=== PATIENT | female | born 1945 | race Caucasian/White ===

== ENCOUNTER 2020-06-13 14:47 | Outpatient (REF) | payer MEDICARE, SELFPAY ==
--- NOTE | 2020-06-13 15:21 | MM_ITS ---
EXAMINATION: BONE DENSITOMETRY CLINICAL INDICATION: Osteoporosis. COMPARISON: Previous BD dated 04/03/2018 and baseline BD dated 07/12/2005. TECHNIQUE: Using a [employer] DXA System (software version: 13.1) manufactured by [employer], dual-energy x-ray absorptiometry was performed of the lumbar spine and left hip. The images are of good technical quality. Summary results are attached. FINDINGS: AP SPINE L1-L4: Current: BMD 0.839 g/cm2, Z-score -0.7, T-score -2.8, osteoporosis, 8.0% decrease from previous, 5.3% decrease from baseline (<5% change is not significant). Prior: BMD 0.912 g/cm2. Baseline: BMD 0.886 g/cm2. LEFT FEMUR, NECK: Current: BMD 0.758 g/cm2, Z-score 0.2, T-score -2.0, osteopenia. Prior: BMD 0.730 g/cm2. Baseline: BMD 0.773 g/cm2. LEFT FEMUR, TOTAL: Current: BMD 0.785 g/cm2, Z-score 0.3, T-score -1.8, osteopenia, 0.5% decrease from previous, 0.6% decrease from baseline (<5% change is not significant). Prior: BMD 0.789 g/cm2. Baseline: BMD 0.790 g/cm2. IDENTIFIED RISK FACTORS: Osteoporosis, height loss, secondary osteoporosis, history of fracture (adult), menopause. HISTORY OF FRACTURE: Spine. Ribs. No insufficiency fracture reported. MEDICATIONS: Vitamin D, bisphosphonate. IMPRESSION: 1. DIAGNOSIS: Osteoporosis based on the lowest T-score value of -2.8 in the lumbar spine applying World Health Organization criteria. 2. 10-YEAR FRACTURE RISK PREDICTION, FRAX: Major osteoporotic fracture (clinical spine, forearm, hip or shoulder) 21.7%. Hip fracture 5.7%. 3. Treatment Recommendations: NOF guidelines recommend consideration for treatment in postmenopausal women and men age 50 and older presenting with the following: -A hip or vertebral (clinical or morphometric) fracture. -T-score less than or equal to -2.5 at the femoral neck or spine after appropriate evaluation to exclude secondary causes. -Low bone mass at the hip or spine and a 10-year fracture probability by FRAX of greater than or equal to 3% for hip fracture or greater than or equal to 20% for major osteoporotic fracture based on the [place] adapted WHO algorithm. 4. Other Recommendations: All treatment decisions require clinical judgment and consideration of individual patient factors, including patient preferences, comorbidities, previous drug use, risk factors not captured in the FRAX model (e.g. frailty, falls, vitamin D deficiency, increased bone turnover, interval significant decline in bone density) and possible under or overestimation of fracture risk by FRAX. Additional medical evaluation for secondary cause of low bone mineral density may be appropriate. FUTURE SCAN RECOMMENDATION: People with diagnosed cases of osteoporosis or at high risk for fracture should have regular bone mineral density tests. For patients eligible for Medicare, routine testing is allowed once every 2 years. The testing frequency can be increased to one year for patients who have rapidly progressing disease, those who are receiving or discontinuing medical therapy to restore bone mass, or have additional risk factors.
== END 2020-06-13 14:48 | disposition home or self-care (01) ==
LOC: HO.MAMMO 14:47
PROVIDERS: Visit Provider Internal Medicine Endocrinology, Diabetes & Metabolism
DX: M81.0 Age-related osteoporosis without current pathological fracture (principal); Z78.0 Asymptomatic menopausal state; Z79.899 Other long term (current) drug therapy
CPT/HCPCS: 77080

== ENCOUNTER 2020-06-15 10:46 | Outpatient (REF) | payer MEDICARE, SELFPAY ==
--- NOTE | 2020-06-15 | US_ITS ---
EXAMINATION: US ABDOMEN COMPLETE CLINICAL INFORMATION: Hepatic cyst. COMPARISON: Ultrasound abdomen complete 07/19/2019. TECHNIQUE: Real-time imaging of the abdominal viscera. FINDINGS: PANCREAS: No abnormal mass or peripancreatic inflammatory change. ABDOMINAL AORTA: Calcified plaque present without significant stenosis appreciated. No abdominal aortic aneurysm. INFERIOR VENA CAVA: Visualized portions are normal. LIVER: There is again noted to be a the left lobe complex either septated cyst or multiple adjacent cysts similar in appearance to previous study measuring approximately 12.3 x 8.4 x 14.7 cm in size. Within the right lobe there are 2 cysts present one measuring 2.7 x 2.5 x 3.1 cm in size and appearing simple, and the other measuring 2.6 x 1.9 x 2.4 cm in size containing septations versus a few adjacent cysts.. Parenchymal echogenicity is normal. There is no intrahepatic biliary duct dilatation seen. GALLBLADDER: Surgically absent. COMMON BILE DUCT: Normal in caliber measuring 0.5 cm in diameter. RIGHT KIDNEY: Normal. No hydronephrosis. No renal calculi or focal parenchymal lesions. The kidney measures 9.7 cm in maximum dimension. LEFT KIDNEY: Within the lower pole there appears to be a 3 x 2 mm nonobstructing calculus. There are multiple other echogenic foci which may represent small nonobstructing calculi or vascular interfaces. No hydronephrosis or focal parenchymal lesions. The kidney measures 11.1 cm in maximum dimension. SPLEEN: Normal. The spleen measures 10.8 cm in maximum dimension. FREE FLUID: None. IMPRESSION: Right and left lobe hepatic cysts 2 of which appear to be complex but without suspicious solid components. Left renal calculi without evidence of hydronephrosis.
--- NOTE | 2020-06-15 11:29 | CA_ITS ---
Transthoracic Echocardiogram Patient (Last, First, Middle): Shantel Prajapati, Gender: Female Date of : 1945 Age: 75 Procedure Date: 06/15/2020 Procedure Type: Transthoracic Echocardiogram Location: OP Height: 144.78 cm Weight: 53.52 kg BSA: 1.44 m2 Heart Rate: bpm BP: 130 / 80 mmHg Jacquard Card Cutter: Referring MD: Giacomo Lewis MD Symptoms: [facility] [place]: - Normal left ventricular size, thickness, and systolic function. - Normal right ventricular cavity size and systolic function. - There is mild aortic valve stenosis. There is mild aortic valve regurgitation. - Multiple hepatic cysts noticed as previously reported. Findings Left Ventricle Normal left ventricular size, thickness, and systolic function. The visually estimated ejection fraction is between 55-60%. Abnormal diastolic function is noted. Spectral Doppler is indicative of a pseudonormal filling pattern. E/E prime ratio is between 8 and 15 consistent with indeterminate filling pressures. Right Ventricle Normal right ventricular cavity size and systolic function. Atria The left atrium is normal in size. Aortic Valve There is a normal trileaflet aortic valve. There is mild aortic valve stenosis. There is mild aortic valve regurgitation. Mitral Valve Normal mitral valve structure and function. There is trace mitral valve regurgitation. There is no mitral valve stenosis. Pulmonic Valve Normal pulmonic valve structure and function. There is trace pulmonic valve regurgitation. Tricuspid Valve Normal tricuspid valve structure and function. There is trace tricuspid valve regurgitation. Normal right atrial pressure. There is no evidence of pulmonary hypertension. Great Vessels All visible segments of the aorta are normal in size. The visualized portions of the pulmonary artery and branches are normal. Venous The inferior vena cava is normal in size and collapses greater than 50% with inspiration. Pericardium/Pleural There is no evidence of pericardial effusion. Prior Study Comparison No significant change compared to prior study dated: 06/04/2019. Measurements 2D Linear Measurements RVIDd: 3.78 RVIDd Index: 2.63 IVSd: 0.90 0.6-0.9/0.6-1.0 cm LVIDd: 4.24 3.9-5.3/4.2-5.9 cm LVIDd Index: 2.94 2.4-3.2/2.2-3.1 cm/m2 LVIDs: 2.47 2.0-3.6 cm LVPWd: 0.87 0.7-1.1 cm Ao Root: 2.20 2.1-3.5 cm LA Diam: 3.50 2.7-3.8/3.0-4.0 cm LAIDs Index: 2.43 1.5-2.3 cm/m2 LV Mass: 146.38 67-162/88-224 g LV Mass Index: 101.65 43-95/49-115 g/m2 LVOT Diam: 2.00 3.0+(-)1.3 cm 2D Systolic Function EF 4C: 71.80 >55% EF 2C: 68.10 >55% EF BiP: 70.10 >55% Mitral Valve MV Pk E: 0.83 MV PK A: 0.86 MV Decel Time: 227.00 E/A: 1.00 E'Lateral: 6.20 E'Medial: 6.09 E/E' Med: 13.70 E/E' Lat: 13.50 PHT: 66.00 MVA PHT: 3.33 Decel [place]: 3.68 Aortic Valve AoV Pk Hoang: 2.11 AoV Mn Hoang: 1.47 AoV VTI: 0.47 AoV Pk Grad: 18.00 Aov Mn Grad: 10.00 ANNE MARIE Cont.VTI: 2.05 AI Pk [place]ang: 3.42 AI [place]: 1.59 LVOT LVOT Pk [place]ang: 1.32 LVOT Mn Hoang: 0.87 LVOT VTI: 0.31 LVOT Pk Grad: 7.00 LVOT Mn Grad: 4.00 LVOT Diam: 2.00 LVOT Area: 3.14 Diastolic Function MV Pk E: 0.83 MV Pk A: 0.86 E/A: 1.00 E'Medial: 6.09 E/E' Med: 13.70 E' Laterial: 6.20 E/E' Lat: 13.50 Tricuspid Valve TR Pk Hoang: 2.55 TR Pk Grad: 26.00 RA Press: 3.00 RVSP: 29.00 Great Vessels Aorta Ao Root-2D: 2.20 2.0-3.7 cm Ao Asc: 2.50 2.1-3.4 cm Ao Arch: 3.20 Updated in Other Vendor System with Status of Final Neftali Barros MD electronically signed on 06/17/2020 3:01:59 PM with status of Final
== END 2020-06-15 10:47 | disposition home or self-care (01) ==
LOC: HO.US 10:46
PROVIDERS: Visit Provider Internal Medicine Medical Oncology
DX: I38 Endocarditis, valve unspecified (principal); K76.89 Other specified diseases of liver
CPT/HCPCS: 76700; 93306

== ENCOUNTER 2020-07-01 09:06 | Outpatient (REF) | payer MEDICARE, SELFPAY ==
[2020-07-01 09:33] LABS: MANUAL DIFF FLAG NO
[2020-07-01 09:35] LABS: Basophils Absolute Auto 0.1 X10*3/uL (0.0-0.2); Basophils Percent Auto 0.7 % (0-2); Eosinophils Absolute Auto 0.2 X10*3/uL (0.0-0.4); Eosinophils Percent Auto 2.6 % (0-4); Hematocrit 40.9 % (37-47); Hemoglobin 13.5 g/dl (12.0-16.0); Imm Gran Abs Auto 0.02 X10*3/uL (0.00-0.03); Imm Gran Pct Auto 0.3 % (0.0-0.4); Lymphocytes Percent Auto 27.9 % (20-40); Mean Corpuscular Hemoglobin 32.2 pg (27.0-33.0); Mean Corpuscular Volume 97.6 fL (80-98); Mean Platelet Volume 9.8 fL (9.4-12.3); Monocytes Absolute Auto 0.7 X10*3/uL (0.1-1.2); Monocytes Percent Auto 9.1 % (2-11); Neutrophils Absolute Auto 4.3 X10*3/uL (2.0-8.3); Neutrophils Percent Auto 59.4 % (45-73); Platelet Count 370 X10*3/uL (160-400); Red Blood Count 4.19 X10*6/uL (4.20-5.50); White Blood Count 7.2 X10*3/uL (4.8-10.8)
[2020-07-01 09:56] LABS: Alanine Aminotransferase 15 U/L (0-31); Albumin Level 4.1 g/dL (3.5-5.0); Alkaline Phosphatase 56 U/L (39-117); Anion Gap 11 (12-20); Aspartate Amino Transferase 19 U/L (5-31); Bilirubin Total 0.5 mg/dL (0.0-1.0); Blood Urea Nitrogen 18 mg/dL (9-16); Calcium 9.2 mg/dL (8.4-10.2); Carbon Dioxide 30 mmol/L (22-29); Chloride 102 mmol/L (96-108); Estimated Glomerular Filt Rate > 60; Glucose Random 96 mg/dL (60-115); Sodium 139 mmol/L (135-145); Total Protein 6.8 g/dL (6.5-8.0)
[2020-07-01 10:07] LABS: Creatinine Urine 108.21 mg/dL
[2020-07-01 10:19] LABS: TSH reflex Free T4 0.73 mIU/mL (0.32-4.0); Vitamin D 25-OH Total 45.1 ng/mL (>30)
[2020-07-03 12:31] LABS: Alpha Fetoprotein 3.2 ng/mL
[2020-07-05 21:48] LABS: Calcium (PTHI) 9.7 mg/dL (8.6-10.4); PTHI 19 pg/mL (14-64)
[2020-07-07 07:22] LABS: N-Telopeptide 22 (see note); NTXCreaRU 108 mg/dL (20-275)
== END 2020-07-01 09:07 | disposition home or self-care (01) ==
LOC: HO.LAB 09:06
PROVIDERS: PCP Internal Medicine Medical Oncology; Visit Provider Internal Medicine Endocrinology, Diabetes & Metabolism
DX: K76.89 Other specified diseases of liver (principal); I38 Endocarditis, valve unspecified; E66.3 Overweight
CPT/HCPCS: 36415; 80053; 82105; 82306; 82523; 83970; 84443; 85025

== ENCOUNTER 2020-09-04 16:03 | Outpatient (REF) | payer MEDICARE, SELFPAY ==
--- NOTE | 2020-09-04 16:06 | MM_ITS ---
EXAMINATION: MM SCREENING DIGITAL BREAST TOMOSYNTHESIS, BILATERAL CLINICAL INFORMATION: Screening. Asymptomatic. The lifetime risk of breast cancer based on the Tyrer-Cuzick Model is 2%. COMPARISON: Mammography: 04/26/2019, 04/03/2018, 03/28/2017 TECHNIQUE: Digital breast tomosynthesis is performed in both the craniocaudal and mediolateral oblique views along with computer-aided detection (CAD). Synthesized 2D images are generated from the tomosynthesis. FINDINGS: There are scattered areas of fibroglandular density (ACR BI-RADS breast composition Category b). There is fine fibronodular parenchymal pattern similar to prior studies. Parenchymal asymmetry medial left breast is stable. There are bilateral dermal calcifications or more likely deodorant artifact overlying the axilla on the MLO views, related to the skin on tomography. The axilla are unremarkable. The skin contours are smooth. The right MLO tomography shows questionable converging radiating lines upper right breast, 10.5 cm from nipple. Patient will be recalled to further characterize and exclude architectural distortion. MM/MM tomosynthesis screening BI IMPRESSION: 1. Right: Question of architectural changes upper quadrant on MLO tomography. 2. Left: There are no significant changes from prior exams. ASSESSMENT: BI-RADS 0: Incomplete - Need Additional Imaging Evaluation RECOMMENDATION: 1. Additional views of the right breast (3-D spot MLO, 3-D ML). 2. Targeted ultrasound if warranted after review of the additional views. 3. Radiology department staff will contact the patient for additional imaging. This patient's information was entered into a reminder system with a target due date for their next mammogram.
== END 2020-09-04 16:04 | disposition home or self-care (01) ==
LOC: HO.MAMMO 16:03
PROVIDERS: PCP Internal Medicine Endocrinology, Diabetes & Metabolism; Visit Provider Internal Medicine Endocrinology, Diabetes & Metabolism
DX: Z12.31 Encounter for screening mammogram for malignant neoplasm of breast (principal)
CPT/HCPCS: 77063; 77067

== ENCOUNTER 2020-09-15 17:09 | Outpatient (REF) | payer MEDICARE, SELFPAY | END 2020-09-15 17:10 | disposition home or self-care (01) | LOC: HO.LAB 17:09 | PROVIDERS: PCP Internal Medicine Medical Oncology; Visit Provider Internal Medicine Medical Oncology | DX: Z13.89 Encounter for screening for other disorder (principal) ==

== ENCOUNTER 2020-09-22 14:20 | Outpatient (REF) | payer MEDICARE, SELFPAY ==
[2020-09-25 01:02] LABS: TS Negative Control Passed; TS Panel A 0; TS Panel B 0; TS Positive Control Passed; TSpotTB Negative (SeeBelow)
== END 2020-09-22 14:21 | disposition home or self-care (01) ==
LOC: HO.LAB 14:20
PROVIDERS: PCP Internal Medicine Medical Oncology; Visit Provider Internal Medicine Medical Oncology
DX: Z11.1 Encounter for screening for respiratory tuberculosis (principal)
CPT/HCPCS: 36415; 86481

== ENCOUNTER 2020-10-18 14:40 | Outpatient (REF) | payer MEDICARE, SELFPAY ==
--- NOTE | ~2020-10-18 | MM_ITS ---
EXAMINATION: MM DIAGNOSTIC DIGITAL BREAST TOMOSYNTHESIS, RIGHT US DIAGNOSTIC ULTRASOUND BREAST, RIGHT CLINICAL INFORMATION: Recall from screening for questionable radiating lines upper right breast on MLO view. TC score 2%. COMPARISON: Mammography: 09/04/2020, 04/26/2019, 04/03/2018 TECHNIQUE: Digital breast tomosynthesis is performed. 2D images are generated from the tomosynthesis. The following views are obtained: 3-D spot MLO, 3-D ML Ultrasound right breast is targeted to the upper outer quadrant. Grayscale imaging and color Doppler are performed without and with harmonics. FINDINGS: There are scattered areas of fibroglandular density (ACR BI-RADS breast composition Category b). The additional views show no definite architectural abnormality. There is no significant mass. No significant change from prior exams. Ultrasound right breast demonstrates no cystic or solid mass or architectural abnormality or focal duct ectasia. No skin thickening or edema tracking in soft tissue planes. Results are discussed with the patient at time of visit. As a precaution, short interval six-month follow-up diagnostic right mammography will be requested in order to exclude remote possibility of a subtle developing density. MM/MM tomosynthesis added views R IMPRESSION: Additional views show no definite architectural abnormality in the area of recent imaging concern. Targeted ultrasound unremarkable. ASSESSMENT: BI-RADS 3: Probably Benign RECOMMENDATION: Diagnostic right mammography in 6 months. This patient's information was entered into a reminder system with a target due date for their next mammogram.
== END 2020-10-18 14:41 | disposition home or self-care (01) ==
LOC: HO.MAMMO 14:40
PROVIDERS: Visit Provider Internal Medicine Endocrinology, Diabetes & Metabolism
DX: N63.11 Unspecified lump in the right breast, upper outer quadrant (principal)
CPT/HCPCS: 76642; 77061; 77065

== ENCOUNTER 2021-05-09 14:41 | Outpatient (REF) | payer MEDICARE, SELFPAY ==
--- NOTE | ~2021-05-09 | MM_ITS ---
EXAMINATION: MM DIAGNOSTIC DIGITAL BREAST TOMOSYNTHESIS, RIGHT CLINICAL INFORMATION: Short interval six-month follow-up for parenchymal asymmetry upper right breast. Assess for developing density. The lifetime risk of breast cancer based on the Tyrer-Cuzick Model is 2%. COMPARISON: Mammography: 10/18/2020, 09/04/2020 (BI-RADS 0), 04/26/2019, targeted right breast ultrasound 10/18/2020 TECHNIQUE: Digital breast tomosynthesis is performed in both the craniocaudal and mediolateral oblique views along with computer-aided detection (CAD). Synthesized 2D images are generated from the tomosynthesis. FINDINGS: There are scattered areas of fibroglandular density (ACR BI-RADS breast composition Category b). There is fine fibronodular parenchymal pattern similar to prior studies. There is no interval asymmetric density or architectural abnormality. No significant changes from prior studies. The remainder of the right breast shows no abnormal calcifications. The axilla and skin contours are unremarkable. Results are provided to the patient at time of visit by the technologist. MM/MM tomosynthesis diagnostic RT IMPRESSION: No mammographic evidence of malignancy. ASSESSMENT: BI-RADS 2: Benign RECOMMENDATION: Routine annual mammography screening, due in 6 months. This patient's information was entered into a reminder system with a target due date for their next mammogram.
== END 2021-05-09 14:42 | disposition home or self-care (01) ==
LOC: HO.MAMMO 14:41
PROVIDERS: Visit Provider Obstetrics & Gynecology Gynecology
DX: R92.2 Inconclusive mammogram (principal)
CPT/HCPCS: 77061; 77065

== ENCOUNTER 2021-05-21 10:31 | Outpatient (REF) | payer MEDICARE, SELFPAY ==
[2021-05-21 11:09] LABS: MANUAL DIFF FLAG NO
[2021-05-21 11:11] LABS: Basophils Absolute Auto 0.1 X10*3/uL (0.0-0.2); Basophils Percent Auto 0.7 % (0-2); Eosinophils Absolute Auto 0.2 X10*3/uL (0.0-0.4); Eosinophils Percent Auto 2.1 % (0-4); Hemoglobin 12.9 g/dl (12.0-16.0); Imm Gran Abs Auto 0.02 X10*3/uL (0.00-0.03); Imm Gran Pct Auto 0.3 % (0.0-0.4); Lymphocytes Absolute Auto 1.8 X10*3/uL (1.2-4.9); Lymphocytes Percent Auto 25.6 % (20-40); Mean Corpuscular HGB Conc 33.1 g/dl (31.0-35.0); Mean Corpuscular Hemoglobin 32.7 pg (27.0-33.0); Mean Corpuscular Volume 98.7 fL (80-98); Mean Platelet Volume 10.1 fL (9.4-12.3); Monocytes Absolute Auto 0.7 X10*3/uL (0.1-1.2); Monocytes Percent Auto 9.9 % (2-11); Neutrophils Absolute Auto 4.4 X10*3/uL (2.0-8.3); Neutrophils Percent Auto 61.4 % (45-73); Platelet Count 324 X10*3/uL (160-400); Red Blood Count 3.95 X10*6/uL (4.20-5.50); Red Cell Distribution Width 12.3 % (11.0-16.0); White Blood Count 7.1 X10*3/uL (4.8-10.8)
[2021-05-21 12:32] LABS: Alanine Aminotransferase 13 U/L (0-31); Albumin Level 4.1 g/dL (3.5-5.0); Alkaline Phosphatase 53 U/L (39-117); Anion Gap 12 (12-20); Aspartate Amino Transferase 19 U/L (5-31); Bilirubin Total 0.4 mg/dL (0.0-1.0); Blood Urea Nitrogen 17 mg/dL (9-16); Calcium 9.3 mg/dL (8.4-10.2); Carbon Dioxide 29 mmol/L (22-29); Chloride 103 mmol/L (96-108); Cholesterol 250 mg/dL; Estimated Glomerular Filt Rate > 60; Glucose Fasting 96 mg/dL (60-99); HDL Cholesterol 76 mg/dL; LDL Cholesterol Calculated 147 mg/dl; Potassium 4.2 mmol/L (3.3-5.1); Sodium 140 mmol/L (135-145); Total Protein 6.6 g/dL (6.5-8.0); Triglycerides 139 mg/dL
== END 2021-05-21 10:32 | disposition home or self-care (01) ==
LOC: HO.LAB 10:31
PROVIDERS: PCP Internal Medicine Medical Oncology; Visit Provider Internal Medicine Medical Oncology
DX: K76.89 Other specified diseases of liver (principal); M81.0 Age-related osteoporosis without current pathological fracture; I10 Essential (primary) hypertension; E66.3 Overweight
CPT/HCPCS: 36415; 80053; 80061; 85025

== ENCOUNTER 2021-07-16 10:55 | Outpatient (REF) | payer MEDICARE, SELFPAY ==
--- NOTE | ~2021-07-16 | US_ITS ---
EXAMINATION: US RETROPERITONEAL LIMITED (AORTA) CLINICAL INFORMATION: This is a 76-year-old female with abdominal aortic aneurysm without rupture.. COMPARISON: None TECHNIQUE: Pate-scale, color Doppler and spectral Doppler evaluation of the abdominal aorta. FINDINGS: There is scattered atherosclerotic disease without evidence of abdominal aortic aneurysm. The measurements of the aorta in maximum AP and transverse dimensions respectively are as follows: Proximal: 2.1 x 2.1 cm. Mid: 1.6 x 1.6 cm. Distal: 1.2 x 1.1 cm. PSV: 66 cm/s. The measurements of the common iliac arteries in maximum AP and TRV dimensions are as follows: Right Common Iliac Artery: 0.8 x 1.0 cm. Left Common Iliac Artery: 0.9 x 1.0 cm. Incidental note is made of multiple cystic masses within the liver. The cysts appear complex with thick walled septa. The largest measures 9.6 x 10.4 x 12.5 cm. This would be best evaluated with a dedicated abdominal ultrasound and compared to the previous studies. US/US abdominal aortic aneurysm IMPRESSION: 1. There is scattered atherosclerotic disease without evidence of abdominal aortic aneurysm. 2. Incidental note is made of multiple cystic structures within the liver. This would be best evaluated with a dedicated liver ultrasound with comparison to the previous studies..
--- NOTE | 2021-07-16 12:55 | CA_ITS ---
Transthoracic Echocardiogram Patient (Last, First, Middle): Shantel Prajapati, Gender: Female Date of : 1945 Age: 76 Procedure Date: 07/16/2021 Procedure Type: Transthoracic Echocardiogram Location: OP Height: 142.24 cm Weight: 53.52 kg BSA: 1.42 m2 Heart Rate: bpm BP: 131 / 80 mmHg Protein Purification Scientist: JONAH Referring MD: Giacomo Lewis MD Symptoms: AAA W/O RUPTURE, AORTIC STENOSIS. Study Quality: Good ECG Rhythm: Sinus Conclusions: - The left ventricular systolic function is normal. The visually estimated ejection fraction is between 65-70%. - Aortic valve sclerosis without any significant stenosis. - There is mild aortic valve regurgitation. - Hepatic cyst noted. Previously reported. Findings Left Ventricle Normal left ventricular cavity size. The left ventricular systolic function is normal. The visually estimated ejection fraction is between 65-70%. There is no evidence of regional wall motion abnormalities. E/E prime ratio is between 8 and 15 consistent with indeterminate filling pressures. Evidence suggests grade I (mild) diastolic dysfunction. Right Ventricle Normal right ventricular cavity size and systolic function. Atria The left atrium is mildly dilated. The right atrium is normal in size. Aortic Valve There is a normal trileaflet aortic valve. The peak aortic velocity is 2.29 m/s with a calculated peak gradient of 21 mmHg. The mean gradient is 11 mmHg. The aortic valve area is 2.72 cm2. There is mild aortic valve regurgitation. No significant aortic stenosis noted. Mitral Valve The mitral valve appears normal. There is trace mitral valve regurgitation. There is no mitral valve stenosis. Pulmonic Valve The pulmonic valve was not well visualized. Tricuspid Valve Normal tricuspid valve structure. There is trace tricuspid valve regurgitation. The pulmonary artery systolic pressure is normal. Great Vessels The aortic annulus, sinuses of valsalva, and asc aorta are normal in size. Venous The inferior vena cava is normal in size and collapses greater than 50% with inspiration. Pericardium/Pleural There is no evidence of pericardial effusion. Prior Study Comparison No significant change compared to prior study dated: 06/15/2020. Measurements 2D Linear Measurements IVSd: 0.93 0.6-0.9/0.6-1.0 cm LVIDd: 3.93 3.9-5.3/4.2-5.9 cm LVIDd Index: 2.77 2.4-3.2/2.2-3.1 cm/m2 LVIDs: 2.11 2.0-3.6 cm LVPWd: 0.63 0.7-1.1 cm Ao Root: 2.70 2.1-3.5 cm LA Diam: 3.70 2.7-3.8/3.0-4.0 cm LAIDs Index: 2.61 1.5-2.3 cm/m2 LV Mass: 109.34 67-162/88-224 g LV Mass Index: 77.00 43-95/49-115 g/m2 LVOT Diam: 2.00 3.0+(-)1.3 cm Mitral Valve MV Pk E: 0.72 MV PK A: 0.98 MV Decel Time: 298.00 E/A: 0.70 E'Lateral: 5.55 E'Medial: 6.31 E/E' Med: 11.30 E/E' Lat: 12.90 PHT: 87.00 MVA PHT: 2.53 Decel [place]: 2.40 Aortic Valve AoV Pk Hoang: 2.29 AoV Mn Hoang: 1.54 AoV VTI: 0.55 AoV Pk Grad: 21.00 Aov Mn Grad: 11.00 ANNE MARIE Cont.VTI: 2.72 AI Pk Hoang: 4.13 AI [place]: 3.18 LVOT LVOT Pk Hoang: 1.92 LVOT Mn Hoang: 1.24 LVOT VTI: 0.48 LVOT Pk Grad: 15.00 LVOT Mn Grad: 8.00 LVOT Diam: 2.00 LVOT Area: 3.14 Diastolic Function MV Pk E: 0.72 MV Pk A: 0.98 E/A: 0.70 E'Medial: 6.31 E/E' Med: 11.30 E' Laterial: 5.55 E/E' Lat: 12.90 Right Ventricle TAPSE (mm): 1.83 TVS' Hoang: 11.60 Tricuspid Valve TR Pk Hoang: 2.27 TR Pk Grad: 21.00 RA Press: 3.00 RVSP: 24.00 Great Vessels Aorta Ao Root-2D: 2.70 2.0-3.7 cm Ao Asc: 3.20 2.1-3.4 cm Ao Arch: 2.10 Updated in Other Vendor System with Status of Final Fermin Durand MD electronically signed on 07/16/2021 4:35:34 PM with status of Final
[2021-07-16 14:15] LABS: Creatinine Urine 104.83 mg/dL
[2021-07-23 10:11] LABS: N-Telopeptide 26 (see note); NTXCreaRU 107 mg/dL (20-275)
== END 2021-07-16 10:56 | disposition home or self-care (01) ==
LOC: HO.US 10:55
PROVIDERS: Internal Medicine Endocrinology, Diabetes & Metabolism; PCP Internal Medicine Medical Oncology; Visit Provider Internal Medicine Medical Oncology
DX: I71.4 Abdominal aortic aneurysm, without rupture (principal); I35.0 Nonrheumatic aortic (valve) stenosis; M81.0 Age-related osteoporosis without current pathological fracture
CPT/HCPCS: 76706; 82523; 93306

== ENCOUNTER 2021-11-29 16:19 | Outpatient (REF) | payer MEDICARE, SELFPAY ==
--- NOTE | ~2021-11-29 | MM_ITS ---
EXAMINATION: MM SCREENING DIGITAL BREAST TOMOSYNTHESIS, BILATERAL CLINICAL INFORMATION: Screening. Asymptomatic. The lifetime risk of breast cancer based on the Tyrer-Cuzick Model is 1.6%. COMPARISON: Mammography: May 09, 2021 and studies dating back to January 14, 2014 TECHNIQUE: Digital breast tomosynthesis is performed in both the craniocaudal and mediolateral oblique views along with computer-aided detection (CAD). Synthesized 2D images are generated from the tomosynthesis. FINDINGS: There are scattered areas of fibroglandular density (ACR BI-RADS breast composition Category b). There are no significant masses, abnormal calcifications, or other abnormalities. MM/MM tomosynthesis screening BI IMPRESSION: There are no significant changes from prior study. ASSESSMENT: BI-RADS 1: Negative RECOMMENDATION: Routine annual mammography screening. This patient's information was entered into a reminder system with a target due date for their next mammogram.
== END 2021-11-29 16:20 | disposition home or self-care (01) ==
LOC: HO.MAMMO 16:19
PROVIDERS: PCP Internal Medicine Medical Oncology; Visit Provider Internal Medicine Medical Oncology
DX: Z12.31 Encounter for screening mammogram for malignant neoplasm of breast (principal)
CPT/HCPCS: 77063; 77067

== ENCOUNTER 2022-05-24 10:23 | Outpatient (REF) | payer MEDICARE, SELFPAY ==
[2022-05-24 10:43] LABS: MANUAL DIFF FLAG NO
[2022-05-24 11:33] LABS: Basophils Absolute Auto 0.1 X10*3/uL (0.0-0.2); Basophils Percent Auto 0.8 % (0-2); Eosinophils Absolute Auto 0.2 X10*3/uL (0.0-0.4); Eosinophils Percent Auto 2.6 % (0-4); Hematocrit 41.4 % (37.0-47.0); Hemoglobin 13.7 g/dl (12.0-16.0); Imm Gran Abs Auto 0.02 X10*3/uL (0.00-0.03); Imm Gran Pct Auto 0.3 % (0.0-0.4); Lymphocytes Absolute Auto 1.9 X10*3/uL (1.2-4.9); Lymphocytes Percent Auto 25.7 % (20-40); Mean Corpuscular HGB Conc 33.1 g/dl (31.0-35.0); Mean Corpuscular Hemoglobin 32.3 pg (27.0-33.0); Mean Corpuscular Volume 97.6 fL (80.0-98.0); Monocytes Absolute Auto 0.9 X10*3/uL (0.1-1.2); Monocytes Percent Auto 12.2 % (2-11); Neutrophils Absolute Auto 4.3 x10*3/uL (2.0-8.3); Neutrophils Percent Auto 58.4 % (45-73); Platelet Count 355 X10*3/uL (160-400); Red Blood Count 4.24 X10*6/uL (4.20-5.50); Red Cell Distribution Width 12.7 % (11.0-16.0); White Blood Count 7.3 X10*3/uL (4.8-10.8)
[2022-05-24 12:23] LABS: Alanine Aminotransferase 12 U/L (0-31); Albumin Level 4.2 g/dL (3.5-5.0); Alkaline Phosphatase 55 U/L (39-117); Anion Gap 16 (12-20); Aspartate Amino Transferase 17 U/L (5-31); Bilirubin Total 0.6 mg/dL (0.0-1.0); Blood Urea Nitrogen 19 mg/dL (9-16); Calcium 9.9 mg/dL (8.4-10.2); Carbon Dioxide 27 mmol/L (22-29); Chloride 102 mmol/L (96-108); Cholesterol 268 mg/dL; Estimated Glomerular Filt Rate > 60; Glucose Fasting 85 mg/dL (60-99); HDL Cholesterol 73 mg/dL; LDL Cholesterol Calculated 174 mg/dl; Potassium 3.9 mmol/L (3.3-5.1); Sodium 141 mmol/L (135-145); Total Protein 6.9 g/dL (6.5-8.0); Triglycerides 107 mg/dL
[2022-05-24 12:39] LABS: Vitamin D 25-OH Total 40.4 ng/mL (>30)
[2022-05-24 13:05] LABS: Folate 14.8 ng/mL (> or = 4.0); Vitamin B12 527 pg/mL (200-900)
== END 2022-05-24 10:24 | disposition home or self-care (01) ==
LOC: HO.LAB 10:23
PROVIDERS: PCP Internal Medicine Medical Oncology; Visit Provider Internal Medicine Medical Oncology
DX: K76.89 Other specified diseases of liver (principal); M81.0 Age-related osteoporosis without current pathological fracture; I10 Essential (primary) hypertension; I35.0 Nonrheumatic aortic (valve) stenosis; E66.3 Overweight
CPT/HCPCS: 36415; 80053; 80061; 82306; 82607; 82746; 85025

== ENCOUNTER 2022-07-11 09:15 | Outpatient (REF) | payer MEDICARE, SELFPAY ==
--- NOTE | ~2022-07-11 | US_ITS ---
EXAMINATION: US ABDOMEN COMPLETE CLINICAL INFORMATION: Liver disease. COMPARISON: Ultrasound aorta 07/16/2021. Ultrasound abdomen complete 06/15/2020. TECHNIQUE: Real-time imaging of the abdominal viscera. FINDINGS: PANCREAS: There is a 9 mm cyst seen in the tail of the pancreas which has not been noted previously. ABDOMINAL AORTA: Atherosclerotic changes are present in the aorta without aneurysm. INFERIOR VENA CAVA: Visualized portions are normal. LIVER: The liver is normal in size. The liver contour is normal. Parenchymal echogenicity is normal. There is a large complex cyst in the left lobe of the liver that measures 12.3 x 8.5 x 15.3 cm. This has been seen previously and is slightly larger. Two cysts are noted in the right lobe of the liver, one measuring 5 cm and the other 2.8 cm with a septation. These have also been seen previously. No suspicious solid hepatic masses. There is no intrahepatic biliary duct dilatation seen. GALLBLADDER: Surgically absent. COMMON BILE DUCT: Normal in caliber measuring 0.4 cm in diameter. RIGHT KIDNEY: Normal. No hydronephrosis. No renal calculi or focal parenchymal lesions. The kidney measures 9.5 cm in maximum dimension. LEFT KIDNEY: Three echogenic foci measuring 2-3 mm are seen in the left kidney, one in the mid pole and two in the lower pole consistent with nonobstructing calculi versus vascular interfaces. These have also been seen previously. No hydronephrosis or focal parenchymal lesions. The kidney measures 11.0 cm in maximum dimension. SPLEEN: Normal. The spleen measures 10.9 cm in maximum dimension. FREE FLUID: None. US/US abdomen complete IMPRESSION: 1. Large complex cyst in the left lobe of the liver has increased in size. 2. Incidentally noted new small cyst in the tail of the pancreas, no solid component is seen. 3. Nonobstructing probable left renal calculi.
== END 2022-07-11 09:16 | disposition home or self-care (01) ==
LOC: HO.US 09:15
PROVIDERS: Visit Provider Internal Medicine Medical Oncology
DX: K76.89 Other specified diseases of liver (principal); I38 Endocarditis, valve unspecified; I35.0 Nonrheumatic aortic (valve) stenosis
CPT/HCPCS: 76700

== ENCOUNTER 2022-07-16 13:15 | Outpatient (REF) | payer MEDICARE, SELFPAY ==
--- NOTE | ~2022-07-16 | MM_ITS ---
EXAMINATION: BONE DENSITOMETRY CLINICAL INDICATION: Osteoporosis. COMPARISON: Previous BD dated 06/13/2020 and baseline BD dated 07/12/2005. TECHNIQUE: Using a [employer]iance DXA System (software version: 13.1) manufactured by [employer], dual-energy x-ray absorptiometry was performed of the lumbar spine and left hip. The images are of good technical quality. Summary results are attached. FINDINGS: AP SPINE L2-L4 (excluding L1): The data of L1-L4 has been changed to exclude the L1 vertebral bodies because underwire bra near sampling window which may cause overestimation of the lumbar spine density. Current: BMD 0.843 g/cm2, Z-score -0.8, T-score -3.0, osteopenia, 0.5% decrease from previous, 4.6% decrease from baseline (<5% change is not significant). Prior: BMD 0.847 g/cm2. Baseline: BMD 0.884 g/cm2. LEFT FEMUR, NECK: Current: BMD 0.705 g/cm2, Z-score 0.0, T-score -2.4, osteopenia. Prior: BMD 0.758 g/cm2. Baseline: BMD 0.773 g/cm2. LEFT FEMUR, TOTAL: Current: BMD 0.759 g/cm2, Z-score 0.3, T-score -2.0, osteopenia, 3.3% decrease from previous, 3.9% decrease from baseline (<5% change is not significant). Prior: BMD 0.785 g/cm2. Baseline: BMD 0.790 g/cm2. IDENTIFIED RISK FACTORS: Osteoporosis, history of fracture (adult), height loss, menopause. HISTORY OF FRACTURE: Spine, other. MEDICATIONS: Vitamin D, bisphosphonates. MM/XR DEXA axial skeleton IMPRESSION: 1. DIAGNOSIS: Osteoporosis based on the lowest T-score value of -3.0 in the lumbar spine applying World Health Organization criteria. 2. 10-YEAR FRACTURE RISK PREDICTION, FRAX: According to the guidelines, FRAX calculation should only be performed on patients in the osteopenia bone density category. Therefore, FRAX was not performed on this patient. 3. Treatment Recommendations: NOF guidelines recommend consideration for treatment in postmenopausal women and men age 50 and older presenting with the following: -A hip or vertebral (clinical or morphometric) fracture. -T-score less than or equal to -2.5 at the femoral neck or spine after appropriate evaluation to exclude secondary causes. -Low bone mass at the hip or spine and a 10-year fracture probability by FRAX of greater than or equal to 3% for hip fracture or greater than or equal to 20% for major osteoporotic fracture based on the [place] adapted WHO algorithm. 4. Other Recommendations: All treatment decisions require clinical judgment and consideration of individual patient factors, including patient preferences, comorbidities, previous drug use, risk factors not captured in the FRAX model (e.g. frailty, falls, vitamin D deficiency, increased bone turnover, interval significant decline in bone density) and possible under or overestimation of fracture risk by FRAX. Additional medical evaluation for secondary cause of low bone mineral density may be appropriate. FUTURE SCAN RECOMMENDATION: People with diagnosed cases of osteoporosis or at high risk for fracture should have regular bone mineral density tests. For patients eligible for Medicare, routine testing is allowed once every 2 years. The testing frequency can be increased to one year for patients who have rapidly progressing disease, those who are receiving or discontinuing medical therapy to restore bone mass, or have additional risk factors.
--- NOTE | 2022-07-16 13:48 | CA_ITS ---
Transthoracic Echocardiogram Patient (Last, First, Middle): Shantel Prajapati, Gender: Female Date of : 1945 Age: 77 Procedure Date: 07/16/2022 Procedure Type: Transthoracic Echocardiogram Location: OP Height: 147.32 cm Weight: 53.52 kg BSA: 1.46 m2 Heart Rate: bpm BP: 124 / 80 mmHg Nursing Home Admissions Director: MARISOL Referring MD: Giacomo Lewis MD Station Manager: Ben Delgadillo MD Symptoms: VALVULAR HEART DISEASE, AORTIC STENOSIS Study Quality: Adequate ECG Rhythm: Sinus Conclusions: - 1. Normal LV systolic function with impaired relaxation filling pattern with elevated filling pressures 2. Mild aortic regurgitation without significant stenosis 3. Normal RV systolic pressure 4. No gross pericardial effusion Findings Left Ventricle Normal left ventricular size, thickness, and systolic function. The visually estimated ejection fraction is between 65-70%. Spectral Doppler is indicative of an impaired relaxation filling pattern. Elevated filling pressures. E/E prime ratio is >15, consistent with elevated filling pressures. Right Ventricle Normal right ventricular cavity size and systolic function. Atria The left atrium is likely dilated. There is no evidence of interatrial shunt. The right atrium is normal in size. Aortic Valve There is mild calcification of the aortic valve. There is no aortic valve stenosis. There is mild aortic valve regurgitation. Mitral Valve There is mild anterior and posterior mitral leaflet thickening. There is trace mitral valve regurgitation. There is no mitral valve stenosis. Pulmonic Valve The pulmonic valve is likely normal. There is trace pulmonic valve regurgitation. Tricuspid Valve Normal tricuspid valve structure. There is trace tricuspid valve regurgitation. The right ventricular systolic pressure is normal. The right ventricular systolic pressure is 17 mmHg. Normal right atrial pressure. There is no evidence of pulmonary hypertension. Great Vessels All visible segments of the aorta are normal in size. The pulmonary artery was not well visualized. Venous The inferior vena cava is normal in size and collapses greater than 50% with inspiration. Pericardium/Pleural There is no evidence of pericardial effusion. large cystic structure noted in the liver on subcostal views. This is a known finding from before studies. Consider dedicated imaging Prior Study Comparison No significant change compared to prior study dated: 07/16/2021. Measurements 2D Linear Measurements IVSd: 0.97 0.6-0.9/0.6-1.0 cm LVIDd: 3.26 3.9-5.3/4.2-5.9 cm LVIDd Index: 2.23 2.4-3.2/2.2-3.1 cm/m2 LVIDs: 2.24 2.0-3.6 cm LVPWd: 0.95 0.7-1.1 cm LA Diam: 3.40 2.7-3.8/3.0-4.0 cm LAIDs Index: 2.33 1.5-2.3 cm/m2 LV Mass: 108.44 67-162/88-224 g LV Mass Index: 74.27 43-95/49-115 g/m2 LVOT Diam: 1.90 3.0+(-)1.3 cm 2D Systolic Function EF 4C: 68.50 >55% EF 2C: 66.40 >55% EF BiP: 68.40 >55% Mitral Valve MV Pk E: 0.84 MV PK A: 0.90 MV Decel Time: 225.00 E/A: 0.90 E'Lateral: 5.66 E'Medial: 5.44 E/E' Med: 15.40 E/E' Lat: 14.80 PHT: 66.00 MVA PHT: 3.33 Decel Screven: 3.73 Aortic Valve AoV Pk Hoang: 1.89 AoV Mn Hoang: 1.30 AoV VTI: 0.46 AoV Pk Grad: 14.00 Aov Mn Grad: 8.00 ANNE MARIE Cont.VTI: 2.30 AI Pk Hoang: 3.66 AI Screven: 1.80 LVOT LVOT Pk Hoang: 1.79 LVOT Mn Hoang: 1.03 LVOT VTI: 0.37 LVOT Pk Grad: 13.00 LVOT Mn Grad: 5.00 LVOT Diam: 1.90 LVOT Area: 2.84 Diastolic Function MV Pk E: 0.84 MV Pk A: 0.90 E/A: 0.90 E'Medial: 5.44 E/E' Med: 15.40 E' Laterial: 5.66 E/E' Lat: 14.80 Right Ventricle TAPSE (mm): 23.30 TVS' Hoang: 10.80 Tricuspid Valve TR Pk Hoang: 1.85 TR Pk Grad: 14.00 RA Press: 3.00 RVSP: 17.00 Great Vessels Aorta Sinus of Valsalva: 2.75 2.0-3.[address] [place]: 2.30 1.7-3.4 cm Ao Asc: 3.50 2.1-3.4 cm Updated in Other Vendor System with Status of Final Ben Delgadillo MD electronically signed on 07/18/2022 12:40:18 PM with status of Final
== END 2022-07-16 13:16 | disposition home or self-care (01) ==
LOC: HO.MAMMO 13:15
PROVIDERS: PCP Internal Medicine Medical Oncology; Visit Provider Internal Medicine Medical Oncology
DX: M81.0 Age-related osteoporosis without current pathological fracture (principal); I38 Endocarditis, valve unspecified; I35.0 Nonrheumatic aortic (valve) stenosis; K76.89 Other specified diseases of liver
CPT/HCPCS: 77080; 93306

== ENCOUNTER 2022-11-21 10:19 | Outpatient (REF) | payer MEDICARE, SELFPAY ==
[2022-11-21 10:33] LABS: MANUAL DIFF FLAG NO
[2022-11-21 10:43] LABS: Basophils Absolute Auto 0.1 X10*3/uL (0.0-0.2); Basophils Percent Auto 0.6 % (0-2); Eosinophils Absolute Auto 0.1 X10*3/uL (0.0-0.4); Eosinophils Percent Auto 1.6 % (0-4); Hematocrit 41.7 % (37.0-47.0); Hemoglobin 14.1 g/dl (12.0-16.0); Imm Gran Abs Auto 0.03 X10*3/uL (0.00-0.03); Imm Gran Pct Auto 0.4 % (0.0-0.4); Lymphocytes Absolute Auto 2.2 X10*3/uL (1.2-4.9); Lymphocytes Percent Auto 26.6 % (20-40); Mean Corpuscular HGB Conc 33.8 g/dl (31.0-35.0); Mean Corpuscular Volume 94.8 fL (80.0-98.0); Mean Platelet Volume 9.5 fL (9.4-12.3); Monocytes Absolute Auto 0.8 X10*3/uL (0.1-1.2); Monocytes Percent Auto 9.7 % (2-11); Neutrophils Percent Auto 61.1 % (45-73); Platelet Count 335 X10*3/uL (160-400); Red Cell Distribution Width 12.4 % (11.0-16.0); White Blood Count 8.1 X10*3/uL (4.8-10.8)
[2022-11-21 11:13] LABS: Alanine Aminotransferase 16 U/L (0-31); Albumin Level 4.2 g/dL (3.5-5.0); Alkaline Phosphatase 58 U/L (39-117); Anion Gap 15 (12-20); Aspartate Amino Transferase 18 U/L (5-31); Bilirubin Total 0.5 mg/dL (0.0-1.0); Blood Urea Nitrogen 15 mg/dL (9-16); Calcium 9.6 mg/dL (8.4-10.2); Carbon Dioxide 29 mmol/L (22-29); Chloride 101 mmol/L (96-108); Cholesterol 279 mg/dL; Estimated Glomerular Filt Rate > 60; Glucose Fasting 93 mg/dL (60-99); HDL Cholesterol 62 mg/dL; LDL Cholesterol Calculated 192 mg/dl; Potassium 3.9 mmol/L (3.3-5.1); Sodium 141 mmol/L (135-145); Triglycerides 125 mg/dL
== END 2022-11-21 10:20 | disposition home or self-care (01) ==
LOC: HO.LAB 10:19
PROVIDERS: PCP Internal Medicine Medical Oncology; Visit Provider Internal Medicine Medical Oncology
DX: I10 Essential (primary) hypertension (principal); E66.3 Overweight
CPT/HCPCS: 36415; 80053; 80061; 85025

== ENCOUNTER 2022-12-10 14:46 | Outpatient (REF) | payer MEDICARE, SELFPAY ==
--- NOTE | ~2022-12-10 | MM_ITS ---
EXAMINATION: MM SCREENING DIGITAL BREAST TOMOSYNTHESIS, BILATERAL CLINICAL INFORMATION: Screening. Asymptomatic. The lifetime risk of breast cancer based on the Tyrer-Cuzick Model is 2%. COMPARISON: Mammography: 11/29/2021, 05/09/2021, 10/18/2020, 09/04/2020, 04/26/2019 TECHNIQUE: Digital breast tomosynthesis is performed in both the craniocaudal and mediolateral oblique views along with computer-aided detection (CAD). Synthesized 2D images are generated from the tomosynthesis. FINDINGS: There are scattered areas of fibroglandular density (ACR BI-RADS breast composition Category b). There is fine fibronodular parenchymal pattern with some tiny stable bilateral asymmetries similar to prior studies. No developing density or architectural abnormality. There are no significant masses, abnormal calcifications, or other abnormalities. The axilla and skin contours are unremarkable. MM/MM tomosynthesis screening BI IMPRESSION: No mammographic evidence of malignancy. ASSESSMENT: BI-RADS 2: Benign RECOMMENDATION: Routine annual mammography screening. This patient's information was entered into a reminder system with a target due date for their next mammogram.
== END 2022-12-10 14:47 | disposition home or self-care (01) ==
LOC: HO.MAMMO 14:46
PROVIDERS: Visit Provider Internal Medicine Medical Oncology
DX: Z12.31 Encounter for screening mammogram for malignant neoplasm of breast (principal)
CPT/HCPCS: 77063; 77067

== ENCOUNTER 2023-05-07 12:33 | Outpatient (REF) | payer MEDICARE, SELFPAY ==
--- NOTE | ~2023-05-07 | XR_ITS ---
EXAMINATION: XR THORACIC SPINE CLINICAL INFORMATION: Thoracic spine pain COMPARISON: None available. TECHNIQUE: 3 views of the thoracic spine were obtained. FINDINGS: Bony demineralization observed. There is an exaggerated thoracic kyphosis. Spondylitic change noted at lower thoracic levels. There is a moderate compression deformity at the approximate T3 level which is of uncertain age. Slight eccentric wedge deformity at the endplate of T4 observed. XR/XR thoracic spine 3V IMPRESSION: Moderate compression fracture at T3 of uncertain age. Slight eccentric wedge compression at T4, also of uncertain age. Spondylitic changes. Saturated thoracic kyphosis. Bony demineralization.
[2023-05-07 14:15] LABS: Alanine Aminotransferase 12 U/L (0-31); Alkaline Phosphatase 50 U/L (39-117); Anion Gap 13 (12-20); Aspartate Amino Transferase 15 U/L (5-31); Bilirubin Total 0.3 mg/dL (0.0-1.0); Blood Urea Nitrogen 20 mg/dL (9-16); Calcium 9.7 mg/dL (8.4-10.2); Carbon Dioxide 26 mmol/L (22-29); Chloride 106 mmol/L (96-108); Estimated Glomerular Filt Rate > 60; Glucose Random 89 mg/dL (60-115); Phosphorus 3.5 mg/dL (2.7-4.5); Potassium 3.7 mmol/L (3.3-5.1); Sodium 141 mmol/L (135-145); Total Protein 6.9 g/dL (6.5-8.0)
[2023-05-07 14:32] LABS: Vitamin D 25-OH Total 50.8 ng/mL (>30)
[2023-05-14 16:08] LABS: N-Telopeptide 25 (see note); NTXCreaRU 102 mg/dL (20-275)
== END 2023-05-07 12:34 | disposition home or self-care (01) ==
LOC: HO.XRAY 12:33
PROVIDERS: Absent Provider Internal Medicine Medical Oncology; PCP Internal Medicine Medical Oncology; Visit Provider Internal Medicine Endocrinology, Diabetes & Metabolism
DX: M81.0 Age-related osteoporosis without current pathological fracture (principal); M54.6 Pain in thoracic spine
CPT/HCPCS: 72072; 80053; 82306; 82523; 84100